=== PATIENT | female | born 1975 | race Caucasian/White ===

== ENCOUNTER 2017-12-30 09:52 | Emergency (ER) | payer OTHER ==
--- NOTE | 2017-12-30 10:55 | ED PDOC ---
HPI: General Adult Time Seen by Provider: 12/30/17 10:46 Chief Complaint (Nursing): GI Problem Chief Complaint (Provider): rectal pain History Per: Patient Additional Complaint(s): 42-year-old female presents to emergency department for evaluation of rectal pain ongoing for 1 month. Patient denies any bleeding or difficulty using the bathroom. No fever or chills. No associated nausea, vomiting, diarrhea or constipation. Last bowel movement was this morning and patient denies straining. PMD: Dr. Hayes Past Medical History Reviewed: Historical Data, Nursing Documentation, Vital Signs Vital Signs: Last Vital Signs Temp 97 F L 12/30/17 10:46 Pulse 97 H 12/30/17 10:46 Resp 17 12/30/17 10:46 BP 124/77 12/30/17 10:46 Pulse Ox 100 12/30/17 10:46 - Medical History PMH: Hypothyroidism - Surgical History Surgical History: ( x 2) Other surgeries: cyst removal from left breast - Family History Family History: States: No Known Family Hx - Living Arrangements Living Arrangements: With Family - Social History Current smoker - smoking cessation education provided: No Alcohol: None Drugs: Denies - Home Medications Home Medications: Ambulatory Orders Medication Instructions Recorded Cyclobenzaprine HCl [Flexeril] 10 mg PO Q8 #20 tab 05/14/15 Ibuprofen [Motrin] 600 mg PO Q6H PRN #20 tab 05/14/15 Hard Fat/Phenylephrine [place] 1 sup RC BID #30 sup 12/30/17 [Anusol Suppository] Ibuprofen [Motrin Tab] 800 mg PO Q8 PRN #20 tab 12/30/17 Lidocaine 5% 1 applic TOP TID PRN #1 tube 12/30/17 - Allergies Allergies/Adverse Reactions: Allergies Allergy/AdvReac Type Severity Reaction Status Date / Time No Known Allergies Allergy Verified 05/14/15 15:30 Review of Systems ROS Statement: Except As Marked, All Systems Reviewed And Found Negative Constitutional: Negative for: Fever Gastrointestinal: Positive for: Rectal Pain. Negative for: Nausea, Vomiting, Abdominal Pain, Diarrhea, Constipation, Melena, Hematochezia, Hematemesis Genitourinary Female: Negative for: Dysuria Physical Exam - Reviewed Nursing Documentation Reviewed: Yes Vital Signs Reviewed: Yes - Physical Exam Appears: Positive for: Well, Non-toxic, No Acute Distress Skin: Negative for: Rash Eye Exam: Positive for: Normal appearance Cardiovascular/Chest: Positive for: Regular Rate, Rhythm Respiratory: Positive for: Normal Breath Sounds. Negative for: Wheezing, Respiratory Distress Gastrointestinal/Abdominal: Positive for: Soft. Negative for: Tenderness, Distended, Guarding, Rebound Rectal: Positive for: Other (External nonthrombosed hemorrhoid noted, no active bleeding, normal rectal tone) Extremity: Positive for: Normal ROM Neurologic/Psych: Positive for: Alert, Oriented - Laboratory Results Urine POC: Negative Medical Decision Making Medical Decision Makin42 year old with rectal pain x 1 month External hemorrhoids noted. Patient given prescriptions for Anusol suppositories and lidocaine topical cream as well as Motrin. Patient has appointment in 3 weeks with primary doctor and was advised to obtain referral to surgeon if symptoms persist. Disposition - Clinical Impression Clinical Impression: External hemorrhoid - Patient ED Disposition Is Patient to be Admitted: No Counseled Patient/Family Regarding: Diagnosis, Need For Followup, Rx Given - Disposition Referrals: Janessa Hayes MD [Family Provider] - Disposition: Routine/Home Disposition Time: 11:44 Condition: STABLE Additional Instructions: Take prescription medicines directed. Follow-up with primary doctor and obtain referral to a surgeon if symptoms persist. Prescriptions: Hard Fat/Phenylephrine Warren [Anusol Suppository] 1 sup RC BID #30 sup Ibuprofen [Motrin Tab] 800 mg PO Q8 PRN #20 tab PRN Reason: Pain, Moderate (4-7) Lidocaine 5% 1 applic TOP TID PRN #1 tube PRN Reason: Pain Instructions: Hemorrhoids (DC) Forms: [employer] (Turkmen)
[2017-12-30 11:08] VITALS: RESP 17; O2SAT 100
[2017-12-30 12:27] VITALS: BP 132/73; PULSE 76; TEMP 97.7
== END 2017-12-30 12:15 | disposition home or self-care (01) ==
LOC: H.ER 09:52
DX: K64.4 Residual hemorrhoidal skin tags (principal); E03.9 Hypothyroidism, unspecified

== ENCOUNTER 2018-09-20 08:31 | Emergency (ER) | payer OTHER ==
[2018-09-20 08:54] VITALS: O2SAT 100
--- NOTE | 2018-09-20 10:09 | RAD ---
Date of service: 09/20/2018 HISTORY: chest pain COMPARISON: No prior. TECHNIQUE: Chest PA and lateral FINDINGS: LUNGS: No active pulmonary disease. PLEURA: No significant pleural effusion identified. No pneumothorax apparent. CARDIOVASCULAR: No aortic atherosclerotic calcification present. Normal cardiac size. No pulmonary vascular congestion. OSSEOUS STRUCTURES: No significant abnormalities. VISUALIZED UPPER ABDOMEN: Normal. OTHER FINDINGS: None. IMPRESSION: No active disease.
[2018-09-20 10:21] LABS: BASO % 0.6 % (0.0-2.0); EOS % 0.4 % (0.0-4.0); HEMOGLOBIN 10.1 g/dL (12.0-16.0); LYMPH # 0.9 K/uL (1.0-4.3); LYMPH % 15.7 % (20.0-40.0); MEAN CELL VOLUME 62.4 fl (81.0-99.0); MEAN CORPUSCULAR HEMOGLOBIN 19.4 pg (27.0-31.0); MEAN CORPUSCULAR HGB CONC 31.1 g/dL (33.0-37.0); MEAN PLATELET VOLUME 8.5 fl (7.2-11.7); MONO # 0.3 K/uL (0.0-0.8); MONO % 4.6 % (0.0-10.0); NEUT # 4.5 K/uL (1.8-7.0); NEUT % 78.7 % (50.0-75.0); NRBC % 0.1 % (0.0-0.0); RBC 5.19 Mil/uL (3.80-5.20); RED CELL DISTRIBUTION WIDTH 17.6 % (11.5-14.5); WHITE BLOOD COUNT 5.7 K/uL (4.8-10.8)
[2018-09-20 10:33] LABS: BLOOD UREA NITROGEN 9 mg/dl (7-17); CALCIUM 9.3 mg/dL (8.4-10.2); GFR NON-AFRICAN AMERICAN > 60
--- NOTE | 2018-09-20 10:54 | ED PDOC ---
HPI: Chest Pain Time Seen by Provider: 09/20/18 09:22 Chief Complaint (Nursing): Chest Pain Chief Complaint (Provider): Chest Pain History Per: Patient History/Exam Limitations: no limitations Onset/Duration Of Symptoms: Days Current Symptoms Are (Timing): Still Present Additional Complaint(s): Patient is a 42 y/o female with a PMHx of hypothyroidism who presents to the ED for evaluation of chest pain ongoing for the past couple of weeks. Patient states the pain is radiating to his left arm associated with tingling. In addition, patient admits to occasionally, intermittent difficulty breathing. Patient denies recent travel or hospitalizations, nausea, vomiting, a cough, and leg pain or swelling. PCP: Dr. Silas Hayes Past Medical History Reviewed: Historical Data, Nursing Documentation, Vital Signs Vital Signs: Last Vital Signs Temp 97.4 F L 09/20/18 08:50 Pulse 84 09/20/18 08:50 Resp 16 09/20/18 08:50 BP 118/75 09/20/18 08:50 Pulse Ox 100 09/20/18 08:50 - Medical History PMH: Hypothyroidism - Surgical History Surgical History: ( x 2) Other surgeries: Tubal Ligation - Family History Family History: States: No Known Family Hx - Social History Current smoker - smoking cessation education provided: No Ex-Smoker (has not smoked in the last 12 months): No - Home Medications Home Medications: Ambulatory Orders Medication Instructions Recorded Cyclobenzaprine HCl [Flexeril] 10 mg PO Q8 #20 tab 05/14/15 Ibuprofen [Motrin] 600 mg PO Q6H PRN #20 tab 05/14/15 Hard Fat/Phenylephrine [place] 1 sup RC BID #30 sup 12/30/17 [Anusol Suppository] Ibuprofen [Motrin Tab] 800 mg PO Q8 PRN #20 tab 12/30/17 Lidocaine 5% 1 applic TOP TID PRN #1 tube 12/30/17 Cyclobenzaprine [Cyclobenzaprine 10 mg PO TID #15 tab 09/20/18 HCl] Naproxen 500 mg PO BID #20 tab 09/20/18 - Allergies Allergies/Adverse Reactions: Allergies Allergy/AdvReac Type Severity Reaction Status Date / Time No Known Allergies Allergy Verified 05/14/15 15:30 DANIELE Risk Score for UA/NSTEMI - DANIELE Risk Score Age > 64: NO 3 or more CAD Risk Factors: NO Known CAD (Stenosis greater than 50%): NO Aspirin use in past 7 days: NO Severe Angina: NO EKG ST changes greater than 0.5mm: NO Positive Cardiac Marker: NO DANIELE Score: 0 Risk %: 5% Wells Criteria for PE - Wells Criteria for Pulmonary Embolism Clinical Signs and Symptoms of DVT: No P.E is #1 Diagnosis, or Equally Likely: No Heart Rate >100: No Immobilization at least 3 days;Surgery previous 4 weeks: No Previous, objectively diagnosed PE or DVT: No Hemoptysis: No Malignancy w/treatment within 6 months, or palliative: No Total Score: 0 Review of Systems ROS Statement: Except As Marked, All Systems Reviewed And Found Negative Cardiovascular: Positive for: Chest Pain (left-sided) Respiratory: Positive for: Other (occasionally, intermittent difficulty breathing). Negative for: Cough Gastrointestinal: Negative for: Nausea, Vomiting Musculoskeletal: Positive for: Arm Pain (and tingling on left). Negative for: Leg Pain (or swelling) Physical Exam - Reviewed Nursing Documentation Reviewed: Yes Vital Signs Reviewed: Yes - Physical Exam Appears: Positive for: Non-toxic, No Acute Distress Head Exam: Positive for: ATRAUMATIC, NORMAL INSPECTION, NORMOCEPHALIC Skin: Positive for: Normal Color, Warm, Dry Eye Exam: Positive for: Normal appearance, EOMI, PERRL Neck: Positive for: Normal, Painless ROM, Supple Cardiovascular/Chest: Positive for: Regular Rate, Rhythm, Other (tenderness on left chest wall in scapular area). Negative for: Murmur Respiratory: Positive for: Normal Breath Sounds. Negative for: Respiratory Distress Gastrointestinal/Abdominal: Positive for: Normal Exam, Soft. Negative for: Tenderness Back: Positive for: Normal Inspection. Negative for: L CVA Tenderness, R CVA Tenderness, Vertebral Tenderness Extremity: Positive for: Normal ROM. Negative for: Pedal Edema, Deformity Neurologic/Psych: Positive for: Alert, Oriented. Negative for: Motor/Sensory Deficits - Laboratory Results Result Diagrams: 09/20/18 10:15 09/20/18 10:15 Lab Results: Troponin I < 0.0120 ng/mL (0.00-0.120) 09/20/18 10:15 - ECG O2 Sat by Pulse Oximetry: 100 (RA) Pulse Ox Interpretation: Normal Medical Decision Making Medical Decision Making: Time: 934 Impression: Chest pain and left arm paresthesia DDx includes but not limited to ACS, PE, musculoskeletal pain, and peripheral neuropathy. Plan: EKG BMP Troponin I CBC D Dimer [COAG] CXR Toradol 15 mg IVP Morning Show Producer Cont Scribe Attestation: Documented by Demetrisu Aragon, acting as a scribe for Grisel Zhou MD. Provider Scribe Attestation: All medical record entries made by the Scribe were at my direction and personally dictated by me. I have reviewed the chart and agree that the record accurately reflects my personal performance of the history, physical exam, medical decision making, and the department course for this patient. I have also personally directed, reviewed, and agree with the discharge instructions and disposition. Disposition - Clinical Impression Clinical Impression: Chest pain - Patient ED Disposition Is Patient to be Admitted: No Doctor Will See Patient In The: Office Counseled Patient/Family Regarding: Studies Performed, Diagnosis, Need For Followup - Disposition Disposition: Routine/Home Disposition Time: 12:05 Condition: GOOD Additional Instructions: XIOMARA STILL, thank you for letting us take care of you today. Your provider was Grisel Zhou MD and you were treated for CHEST PAIN. The emergency medical care you received today was directed at your acute symptoms. If you were prescribed any medication, please fill it and take as directed. It may take several days for your symptoms to resolve. Return to the Emergency Department if your symptoms worsen, do not improve, or if you have any other problems. Please contact your doctor or call one of the physicians/clinics you have been referred to that are listed on the Patient Visit Information form that is incl uded in your discharge packet. Bring any paperwork you were given at discharge with you along with any medications you are taking to your follow up visit. Our treatment cannot replace ongoing medical care by a primary care provider outside of the emergency department. Thank you for allowing the [facility] team to be part of your care today. If you had an X-Ray or CT scan: A Radiologist will review the ED reading if any change in treatment is needed we will contact you. If you had a blood, urine, or wound culture: It will take several days for the results, if any change in treatment is needed we will contact you. If you had an STI test: It will take 48 hours for the results. Please call after 1 week if you have not heard back. Instructions: Chest Pain
[2018-09-20 12:36] VITALS: BP 114/65; PULSE 77; RESP 17; TEMP 97.8
--- NOTE | 2018-09-20 16:53 | CARD ---
APPROVED REPORT Date of service: 09/20/2018 EKG Measurement Heart [id number] [id number] [id number] <Conclusion> Normal sinus rhythm Normal ECG
== END 2018-09-20 12:36 | disposition home or self-care (01) ==
LOC: H.ER 08:31
DX: R07.9 Chest pain, unspecified (principal); Z87.891 Personal history of nicotine dependence
CPT/HCPCS: 71046; 80048; 81025; 84484; 85025; 85378; 93005; 96374; 99283; J1885